=== PATIENT | female | born 1975 | race Caucasian/White ===

== ENCOUNTER → 2017-11-27 | Outpatient (CLI) | payer BC ==
--- NOTE | 2017-11-28 13:44 | MM ---
Reason for exam: clinical finding. Baseline mammogram. History: Family history of breast cancer in maternal aunt at age 45. Took hormonal contraceptives beginning at age 18. Physical Findings: Nurse did not find any significant physical abnormalities on exam. [facility] Diagnostic Mammo w CAD K[facility]I Bilateral CC and MLO view(s) were taken. LM, spot compression CC, and spot compression MLO view(s) were taken of the right breast. There are scattered fibroglandular densities. Central posterior nodularity right breast partially disperses on spot MLO. It disperses on lateral view and there is no correlate on the CC view. Precautionary 6 month follow up recommended. Otherwise, no discrete abnormality seen. These results were verbally communicated with the patient and result sheet given to the patient on 11/27/17. ASSESSMENT: Probably benign, BI-RAD 3 RECOMMENDATION: Follow-up diagnostic mammogram of the right breast in 6 months. Manage on a clinical basis with regard to bilateral breast pain.
== END | disposition home or self-care (01) ==
LOC: RADMAMWWP 13:43
PROVIDERS: ATTEND Family Medicine
DX: N64.4 Mastodynia (principal)
CPT/HCPCS: 77066

== ENCOUNTER → 2017-11-30 | Outpatient (CLI) | payer BC ==
[2017-11-30 11:53] LABS: ALT 36 U/L (9-52); AST 22 U/L (14-36); Albumin 4.4 g/dL (3.5-5.0); Alkaline Phosphatase 78 U/L (38-126); Anion Gap 8 mmol/L; Blood Urea Nitrogen 17 mg/dL (7-17); Calcium 9.8 mg/dL (8.4-10.2); Carbon Dioxide 29 mmol/L (22-30); Chloride 104 mmol/L (98-107); Cholesterol 154 mg/dL (<200); Glucose 97 mg/dL (74-99); HDL Cholesterol 64 mg/dL (40-60); LDL Cholesterol,Calculated 80 mg/dL (0-99); Potassium 5.2 mmol/L (3.5-5.1); Sodium 141 mmol/L (137-145); Total Bilirubin 0.6 mg/dL (0.2-1.3); Total Protein 7.4 g/dL (6.3-8.2); Triglycerides 48 mg/dL (<150)
[2017-11-30 17:42] LABS: Hemoglobin A1C 5.1 % (4.0-6.0)
== END | disposition home or self-care (01) ==
LOC: LABWHC1 11:11
PROVIDERS: ATTEND Family Medicine
DX: Z00.00 Encounter for general adult medical examination without abnormal findings (principal); R53.82 Chronic fatigue, unspecified; R73.01 Impaired fasting glucose
CPT/HCPCS: 36415; 80053; 80061; 83036; 84443

== ENCOUNTER → 2019-11-05 | Outpatient (CLI) | payer BC ==
--- NOTE | 2019-11-06 14:23 | MM ---
Reason for exam: clinical finding. Last mammogram was performed 1 year and 11 months ago. History: Family history of breast cancer in maternal aunt at age 45. Took hormonal contraceptives beginning at age 18. Physical Findings: Nurse did not find any significant physical abnormalities on exam. MG 3D Diag Mammo W/Cad KENNEDI Bilateral CC and MLO view(s) were taken. Prior study comparison: November 27, 2017, bilateral MG diagnostic mammo w CAD KENNEDI. There are scattered fibroglandular densities. No significant new findings when compared with previous films. These results were verbally communicated with the patient and result sheet given to the patient on 11/05/19. ASSESSMENT: Benign, BI-RAD 2 RECOMMENDATION: Routine screening mammogram of both breasts in 1 year. Manage patient on a clinical basis.
== END | disposition home or self-care (01) ==
LOC: RADMAMWWP 12:26
PROVIDERS: ATTEND Obstetrics & Gynecology
DX: N64.4 Mastodynia (principal)
CPT/HCPCS: 77062; 77066